=== PATIENT | female | born 1980 | race Hispanic/Latino ===

== ENCOUNTER 2017-09-29 08:23 | Day surgery (SDC) | payer BC ==
[2017-09-29] MEDS ORDERED: Lactated Ringer's 500 ML IV ONE (09:01)
[2017-09-29 09:17] VITALS: O2SAT 100
[2017-09-29] MEDS ORDERED: Propofol 10 mg/ml Inj (20 ML) ONE (10:47)
[2017-09-29 11:25] VITALS: RESP 12; TEMP 97.2
[2017-09-29 11:43] VITALS: BP 102/59; PULSE 65
== END 2017-09-29 11:46 | disposition home or self-care (01) ==
LOC: H.ENDO 08:23
PROVIDERS: ATTEND Internal Medicine Gastroenterology
DX: K59.00 Constipation, unspecified (principal); E78.5 Hyperlipidemia, unspecified; K64.8 Other hemorrhoids; K63.89 Other specified diseases of intestine; K64.4 Residual hemorrhoidal skin tags; K29.50 Unspecified chronic gastritis without bleeding; K21.9 Gastro-esophageal reflux disease without esophagitis; K30 Functional dyspepsia
CPT/HCPCS: 43239; 45380; 88305; J2704; J7120

== ENCOUNTER 2018-01-22 08:33 | Emergency (ER) | payer BC ==
[2018-01-22 08:38] VITALS: TEMP 98.4; O2SAT 99
[2018-01-22 09:37] LABS: BASO % 0.5 % (0.0-2.0); EOS # 0.1 K/uL (0.0-0.7); EOS % 1.5 % (0.0-4.0); HEMOGLOBIN 12.6 g/dL (12.0-16.0); LYMPH # 2.1 K/uL (1.0-4.3); LYMPH % 33.7 % (20.0-40.0); MEAN CELL VOLUME 86.9 fl (81.0-99.0); MEAN CORPUSCULAR HEMOGLOBIN 28.3 pg (27.0-31.0); MEAN CORPUSCULAR HGB CONC 32.6 g/dL (33.0-37.0); MEAN PLATELET VOLUME 10.4 fl (7.2-11.7); MONO # 0.5 K/uL (0.0-0.8); MONO % 7.9 % (0.0-10.0); NEUT # 3.6 K/uL (1.8-7.0); NEUT % 56.4 % (50.0-75.0); NRBC % 0.2 % (0.0-0.0); RBC 4.45 Mil/uL (3.80-5.20); RED CELL DISTRIBUTION WIDTH 12.7 % (11.5-14.5); WHITE BLOOD COUNT 6.3 K/uL (4.8-10.8)
[2018-01-22 09:38] LABS: SQUAMOUS EPITHIAL 1 /hpf (0-5); URINE BILIRUBIN NEGATIVE (NEGATIVE); URINE BLOOD LARGE (NEGATIVE); URINE CLARITY CLOUDY (Clear); URINE COLOR RED (YELLOW); URINE GLUCOSE (UA) NEG (Normal); URINE LEUKOCYTE ESTERASE NEG Leu/uL (Negative); URINE PROTEIN 100 mg/dL (NEGATIVE); URINE UROBILINOGEN 0.2-1.0 mg/dL (0.2-1.0)
[2018-01-22 09:41] LABS: ALBUMIN 4.4 g/dL (3.5-5.0); CALCIUM 9.2 mg/dL (8.4-10.2); GFR AFRICAN-AMERICAN > 60; GFR NON-AFRICAN AMERICAN > 60
[2018-01-22 09:42] LABS: ALB/GLOB RATIO 1.4 (1.0-2.1)
[2018-01-22 09:45] LABS: ALT/SGPT 26 U/L (9-52); AST/SGOT 37 U/L (14-36); BLOOD UREA NITROGEN 11 mg/dl (7-17)
--- NOTE | 2018-01-22 11:49 | US ---
Date of service: 01/22/2018 PROCEDURE: Ultrasound of the Kidneys HISTORY: L flank pain, hematuria COMPARISON: None available. TECHNIQUE: Sonogram of the kidneys. FINDINGS: RIGHT KIDNEY: Measures: 11.1 x 5.0 x 4.0 cm. Normal in size, contour and echogenicity. No stone, solid mass lesion or hydronephrosis visualized. LEFT KIDNEY: Measures: 10.5 x 5.3 x 5.0 cm. Normal in size, contour and echogenicity. No stone, solid mass lesion or hydronephrosis visualized. OTHER FINDINGS: None. IMPRESSION: Unremarkable renal sonogram.
--- NOTE | 2018-01-22 11:57 | CT ---
Date of service: 01/22/2018 PROCEDURE: CT Abdomen and Pelvis without intravenous contrast HISTORY: hematuria, flank pain COMPARISON: None. TECHNIQUE: Technique. Contrast dose: Radiation dose: Total exam DLP = mGy-cm. This CT exam was performed using one or more of the following dose reduction techniques: Automated exposure control, adjustment of the mA and/or kV according to patient size, and/or use of iterative reconstruction technique. FINDINGS: LOWER THORAX: Unremarkable. LIVER: A small lucency is identified at the dome liver too small to characterize with liver otherwise unremarkable appearing. GALLBLADDER AND BILE DUCTS: Unremarkable. PANCREAS: Unremarkable. No gross lesion or ductal dilatation. SPLEEN: Unremarkable. ADRENALS: Unremarkable. No mass. KIDNEYS AND URETERS: Unremarkable. No hydronephrosis. No solid mass. VASCULATURE: Unremarkable. No aortic aneurysm. BOWEL: Unremarkable. No obstruction. No gross mural thickening. APPENDIX: Unremarkable. Normal appendix. PERITONEUM: Unremarkable. No free fluid. No free air. LYMPH NODES: Unremarkable. No enlarged lymph nodes. BLADDER: A markedly thickened urinary bladder wall is identified suggestive of infectious or potential inflammatory process with neoplasm not favored not completely excluded either. No radiodense cholelithiasis. REPRODUCTIVE: Unremarkable. BONES: No acute fracture. OTHER FINDINGS: None. IMPRESSION: 1. Thickened urinary bladder blanco seen diffusely which may indicate cystitis. Clinically correlate further. 2. No radiodense urolithiasis, obstructive uropathy or perinephric reaction. 3. Further evaluation remaining abdominal pelvic viscera is limited due to the lack of oral and intravenous contrast agents. No bowel obstruction, free intra peritoneal gas or ascites throughout.
--- NOTE | 2018-01-22 12:07 | ED PDOC ---
HPI: Female Pain Time Seen by Provider: 01/22/18 08:50 Chief Complaint (Nursing): Female Genitourinary Past Medical History Vital Signs: Last Vital Signs Temp 98.4 F 01/22/18 08:37 Pulse 68 01/22/18 08:37 Resp 16 01/22/18 08:37 BP 106/70 01/22/18 08:37 Pulse Ox 99 01/22/18 08:37 - Home Medications Home Medications: Ambulatory Orders Medication Instructions Recorded Amoxicillin/Clavulanate [Augmentin 1 tab PO BID #14 tab 01/22/18 875 MG-125 MG] - Allergies Allergies/Adverse Reactions: Allergies Allergy/AdvReac Type Severity Reaction Status Date / Time No Known Allergies Allergy Verified 09/29/17 09:08 - Laboratory Results Result Diagrams: 01/22/18 09:24 01/22/18 09:24 - ECG O2 Sat by Pulse Oximetry: 99 Medical Decision Making Medical Decision Making: Accession No. : [id number] Patient Name / ID : KARLO ZELAYA / [id number] Exam Date : 01/22/2018 11:36:24 ( Approved ) Study Comment : Sex / Age : F / 37Y Creator : Adan Mayer MD Dictator : Adan Mayer MD Clothes Model : Rn Geriatric : Adan Mayer MD Approver2 : Report Date : 01/22/2018 11:56:03 My Comment : Date of service: 01/22/2018 PROCEDURE: CT Abdomen and Pelvis without intravenous contrast HISTORY: hematuria, flank pain COMPARISON: None. TECHNIQUE: Technique. Contrast dose: Radiation dose: Total exam DLP = mGy-cm. This CT exam was performed using one or more of the following dose reduction techniques: Automated exposure control, adjustment of the mA and/or kV according to patient size, and/or use of iterative reconstruction technique. FINDINGS: LOWER THORAX: Unremarkable. LIVER: A small lucency is identified at the dome liver too small to characterize with liver otherwise unremarkable appearing. GALLBLADDER AND BILE DUCTS: Unremarkable. PANCREAS: Unremarkable. No gross lesion or ductal dilatation. SPLEEN: Unremarkable. ADRENALS: Unremarkable. No mass. KIDNEYS AND URETERS: Unremarkable. No hydronephrosis. No solid mass. VASCULATURE: Unremarkable. No aortic aneurysm. BOWEL: Unremarkable. No obstruction. No gross mural thickening. APPENDIX: Unremarkable. Normal appendix. PERITONEUM: Unremarkable. No free fluid. No free air. LYMPH NODES: Unremarkable. No enlarged lymph nodes. BLADDER: A markedly thickened urinary bladder wall is identified suggestive of infectious or potential inflammatory process with neoplasm not favored not completely excluded either. No radiodense cholelithiasis. REPRODUCTIVE: Unremarkable. BONES: No acute fracture. OTHER FINDINGS: None. IMPRESSION: 1. Thickened urinary bladder blanco seen diffusely which may indicate cystitis. Clinically correlate further. 2. No radiodense urolithiasis, obstructive uropathy or perinephric reaction. 3. Further evaluation remaining abdominal pelvic viscera is limited due to the lack of oral and intravenous contrast agents. No bowel obstruction, free intra peritoneal gas or ascites throughout. Rx augmentin and followup urine cultures Refer to urology for definitive treatment explained may need cystoscopy to r/o invasive lesion or other cause of hematuria Disposition - Clinical Impression Clinical Impression: Genitourinary Pain, Hematuria - Patient ED Disposition Is Patient to be Admitted: No Counseled Patient/Family Regarding: Studies Performed, Diagnosis - Disposition Referrals: Ran Macdonald MD [Medical Doctor] - Disposition: Routine/Home Disposition Time: 12:05 Condition: STABLE Additional Instructions: SEE UROLOGY FOR DEFINITIVE MANAGEMENT AND TESTING. YOU MAY NEED FURTHER TESTING SUCH A CYSTOSCOPY TO RULE OUT OTHER CAUSES OF BLEEDING LIKE CANCER. CAUTION WITH AIR TRAVEL IF YOU ARE HAVING ANY BLEEDING OR SYMPTOMS PRIOR TO FLIGHT. TAKE ANTIBIOTICS DIRECTED. FOLLOWUP CULTURES 2-3 DAYS. YOU WILL BE CALLED IF YOU NEED YOUR ANTIBIOTIC CHANGED. Prescriptions: Amoxicillin/Clavulanate [Augmentin 875 MG-125 MG] 1 tab PO BID #14 tab Instructions: Blood in the Urine (Hematuria) in Adults
[2018-01-22 12:49] VITALS: BP 110/72; PULSE 70; RESP 18
== END 2018-01-22 12:33 | disposition home or self-care (01) ==
LOC: H.ER 08:33
DX: R31.9 Hematuria, unspecified (principal)